=== PATIENT | female | born 1980 | race Caucasian/White ===

== ENCOUNTER 2018-12-01 11:11 | Emergency (ER) | payer OTHER ==
[2018-12-01] MEDS: ACETAMINOPHEN 500 MG TAB PO (11:32)
== END 2018-12-01 12:28 | disposition home or self-care (01) ==
LOC: E/R 11:11
DX: O99.89 Other specified diseases and conditions complicating pregnancy, childbirth and the puerperium (principal); S30.1XXA Contusion of abdominal wall, initial encounter; V89.2XXA Person injured in unspecified motor-vehicle accident, traffic, initial encounter
CPT/HCPCS: 74018; 99283-25